=== PATIENT | male | born 1945 | race Native Hawaiian/Other Pacific Islander ===

== ENCOUNTER 2016-12-07 22:43 | Inpatient (IN) | payer OTHER, BC ==
[~2016-12-07] VITALS: Ht 175.3 cm; Wt 104.9 kg
[2016-12-07] MEDS ORDERED: ALLO100T22 PO (22:58)
[2016-12-07] MEDS ORDERED: CARV12.5 PO (22:59)
[2016-12-07] MEDS ORDERED: ASA LOW DOSE81 MG PO (22:59)
[2016-12-07] MEDS ORDERED: AMLO2.5T PO (23:00)
[2016-12-07] MEDS ORDERED: FOLBEE PLU1 PO (23:00)
[2016-12-07] MEDS ORDERED: LISI10TA11 PO (23:00)
[2016-12-07] MEDS ORDERED: NOVOLOG100 MG/ML SC (23:01)
[2016-12-07] MEDS ORDERED: PHOSLO667 MG PO (23:02)
[2016-12-07] MEDS ORDERED: PEPCID20 MG PO (23:02)
[2016-12-07 23:03] VITALS: BP 126/63; TEMP 97.5
[2016-12-07] MEDS ORDERED: CLOP75TA2 PO (23:03)
[2016-12-07] MEDS ORDERED: LEVO0.0529 PO (23:03)
[2016-12-07] MEDS ORDERED: SENSIPAR60 MG PO (23:03)
[2016-12-07] MEDS ORDERED: ABACAVIR SULFAT1 TAB PO (23:04)
[2016-12-07 23:57] LABS: PLATELET COUNT 133 K/uL (142-355)
[2016-12-08 03:49] VITALS: BP 146/85; TEMP 98.9; Ht 175.3 cm; Wt 104.9 kg
[2016-12-08 08:00] VITALS: BP 111/39; TEMP 98.6
[2016-12-08 12:00] VITALS: BP 116/46; TEMP 98.4
[2016-12-08 15:16] LABS: PLATELET COUNT 113 K/uL (142-355)
[2016-12-08 15:55] LABS: POTASSIUM 3.4 mmol/L (3.6-5.2)
[2016-12-08 20:00] VITALS: BP 116/83; TEMP 97.9
[2016-12-09] VITALS: BP 108/46; TEMP 97.9
[2016-12-09 04:00] VITALS: BP 114/55; TEMP 98.1
[2016-12-09 06:31] LABS: PLATELET COUNT 142 K/uL (142-355)
[2016-12-09 06:48] LABS: POTASSIUM 3.9 mmol/L (3.6-5.2)
[2016-12-09 08:00] VITALS: BP 122/84; TEMP 98.6
[2016-12-09 12:00] VITALS: BP 151/32; TEMP 98
[2016-12-09 16:00] VITALS: BP 135/39; TEMP 98
[2016-12-09 20:00] VITALS: BP 125/50; TEMP 97.7
[2016-12-10] VITALS (7 sets, daily range): BP systolic 97–146; BP diastolic 32–91; TEMP 97.8–99.1
[2016-12-10 03:49] LABS: PLATELET COUNT 139 K/uL (142-355)
[2016-12-10 04:04] LABS: POTASSIUM 4.1 mmol/L (3.6-5.2)
[2016-12-11 04:00] VITALS: BP 92/48; TEMP 97.9
[2016-12-11 04:29] LABS: PLATELET COUNT 145 K/uL (142-355)
[2016-12-11 04:55] LABS: POTASSIUM 4.8 mmol/L (3.6-5.2)
[2016-12-11 08:00] VITALS: BP 86/39; TEMP 97.6
[2016-12-11 12:00] VITALS: BP 90/42; TEMP 98
== END 2016-12-11 15:40 | disposition short-term general hospital (02) | DRG 193 ==
LOC: ED 22:43 → MED/SURG 12-08 00:40
PROVIDERS: Emergency Medicine; ADMIT Family Medicine
PROC: 5A1D00Z (ICD-10-PCS; principal; 2016-12-08)
DX: J18.8 Other pneumonia, unspecified organism (principal); N18.6 End stage renal disease; I12.0 Hypertensive chronic kidney disease with stage 5 chronic kidney disease or end stage renal disease; E87.1 Hypo-osmolality and hyponatremia; R11.2 Nausea with vomiting, unspecified; K52.89 Other specified noninfective gastroenteritis and colitis; D53.9 Nutritional anemia, unspecified; E03.8 Other specified hypothyroidism; E11.9 Type 2 diabetes mellitus without complications; L97.529 Non-pressure chronic ulcer of other part of left foot with unspecified severity; L97.519 Non-pressure chronic ulcer of other part of right foot with unspecified severity; L08.89 Other specified local infections of the skin and subcutaneous tissue; B96.4 Proteus (mirabilis) (morganii) as the cause of diseases classified elsewhere; B96.89 Other specified bacterial agents as the cause of diseases classified elsewhere
CPT/HCPCS: 36415; 36591; 80053; 82150; 82607; 82728; 82948; 83540; 83550; 83605; 83690; 83735; 84466; 85007; 85027; 85379; 87040; 87070; 87077; 87186; 87205; 93005; 94640; 94664; 94760; 96372; 96374; 96375; 99284; J0500; J0696; J0744; J1170; J1644; J2175; J2405; J2550; J3370; J3490; Q9963

== ENCOUNTER 2016-12-11 15:45 | Outpatient (CLI) | payer OTHER, BC ==
[~2016-12-11 15:45] MED LIST: ABACAVIR SULFAT1 TAB PO; ALLO100T22 PO; AMLO2.5T PO; ASA LOW DOSE81 MG PO; CARV12.5 PO; CLOP75TA2 PO; FOLBEE PLU1 PO; LEVO0.0529 PO; LISI10TA11 PO; NOVOLOG100 MG/ML SC; PEPCID20 MG PO; PHOSLO667 MG PO; SENSIPAR60 MG PO
== END 2016-12-11 16:49 | disposition short-term general hospital (02) ==
LOC: AMB 15:45
DX: J18.8 Other pneumonia, unspecified organism (principal); N18.6 End stage renal disease; I12.0 Hypertensive chronic kidney disease with stage 5 chronic kidney disease or end stage renal disease; E87.1 Hypo-osmolality and hyponatremia; R11.2 Nausea with vomiting, unspecified; K52.89 Other specified noninfective gastroenteritis and colitis; D53.9 Nutritional anemia, unspecified; E03.8 Other specified hypothyroidism; E11.9 Type 2 diabetes mellitus without complications; L97.529 Non-pressure chronic ulcer of other part of left foot with unspecified severity; L97.519 Non-pressure chronic ulcer of other part of right foot with unspecified severity; L08.89 Other specified local infections of the skin and subcutaneous tissue; B96.4 Proteus (mirabilis) (morganii) as the cause of diseases classified elsewhere; B96.89 Other specified bacterial agents as the cause of diseases classified elsewhere
CPT/HCPCS: A0425; A0427